=== PATIENT | male | born 1990 | race Native Hawaiian/Other Pacific Islander ===

== ENCOUNTER 2022-03-20 13:12 | Emergency (ER) | payer BC, SELFPAY ==
[2022-03-20 13:28] VITALS: BP 123/71; PULSE 64; RESP 18; TEMP 37.2; O2SAT 99; BMI 23.6
--- NOTE | 2022-03-20 13:36 | ED_ITS ---
HPI - Extremity Injury (Lower) General Time Seen by Provider: 13:36 Date Seen: 03/20/22 Chief Complaint: Extremity Pain/Injury, Lower Stated Complaint: Leg Injury Time Seen by Provider: 03/20/22 13:27 Source: patient and RN notes reviewed Mode of arrival: wheelchair Limitations: no limitations History of Present Illness HPI Narrative: Patient was playing volleyball prior to arrival when he felt sudden pop and pain in his Achilles area on his right lower extremity. He states it felt like somebody kicked him quite hard but that did not happen. He feels some mild ongoing tension or pain in the area. Trying to move his foot hurts in the Achilles area. No current numbness tingling. Nothing else hurts. He has no prior injury of his Achilles tendon that he is aware of. He did not attempt to walking, his friends carried him off and came in by wheelchair here. MD complaint: other (Right Achilles tendon injury) Onset (ago): minute(s) Related Data Home Medications Medication Instructions Recorded Confirmed No Known Home Medications 03/20/22 03/20/22 Allergies Allergy/AdvReac Type Severity Reaction Status Date / Time No Known Drug Allergies Allergy Verified 03/20/22 13:28 Review of Systems Narrative: As per HPI [facility] PFSH Social History (System 03/08/22 @ 14:09 by Estrellita Gonsales) Smoking Status: Never smoker Do you use any of these nicotine containing products: None How often do you have a drink containing alcohol: 2-4 times a month AUDIT-C Alcohol total score: 2 Non-prescribed substance use: denies use Exam Const: Vital Signs, click to edit/add: Vital Signs - 24 hr 03/20/22 13:28 Temperature 98.9 F Pulse Rate [Right Pulse Oximeter] 64 Respiratory Rate 18 Blood Pressure [Ri ght Upper Arm] 123/71 Pulse Oximetry 99 Oxygen Delivery Me thod Room Air Documenting provider has reviewed patient's vital signs: yes Common normals: no apparent distress, oriented x3, no limitations, healthy appearing and alert General appearance: cooperative, comfortable and well kempt Extremity: Other: He has no swelling of either lower extremity. The Achilles area on his right lower extremity does not have the defined tendon as he does on the left side. I t feels more soft and developing swelling. Initially I thought he might have a little preserved Jennings test on the right but when a truly get his legs over the side of the bed in a sitting position, I cannot elicit any response. He has a very definitive normal Jennings test on the left. There is no swelling in the foot, neurovascular is intact bilaterally. His right calf itself is nontender, seems to have some mild tenderness when I palpate over the right Achilles area, again, where there is loss of continuity of a defined Achilles tendon. Neuro: Common normals: oriented x3 Sensorium/orientation: alert Psych: Appearance: well kempt Course Consultations Consultation #1: Spoke with Joy Pedro of the orthopedic PAs. She will have the office contact him for follow-up appointment. She agrees with posterior splint application, nonweightbearing, use of crutches. As far as imaging, she states that they will order an MRI. They prefer an MRI if this is going to be surgical. Clinically a.m. confident enough that I think this is Achilles injury and will require MRI for follow-up, thus will not do an ultrasound for confirmation of diagnosis here is it is not necessary. Time: 13:50 Vital Signs Vital signs: Initial Vital Signs Temperature 98.9 F 03/20/22 13:28 Temperature Source Temporal Artery Scan 03/20/22 13:28 Pulse Rate 64 03/20/22 13:28 Respiratory Rate 18 03/20/22 13:28 Blood Pressure 123/71 03/20/22 13:28 Blood Pressure Mean 88 03/20/22 13:28 Blood Pressure Position Sitting 03/20/22 13:28 Pulse Oximetry 99 03/20/22 13:28 Oxygen Delivery Method 03/20/22 13:28 Vital Signs Temperature 98.9 F 03/20/22 13:28 Pulse Rate 64 03/20/22 13:28 Respiratory Rate 18 03/20/22 13:28 Blood Pressure 123/71 03/20/22 13:28 Pulse Oximetry 99 03/20/22 13:28 Oxygen Delivery Method 03/20/22 13:28 Temperature 98.9 F 03/20/22 13:28 Pulse Rate 64 03/20/22 13:28 Respiratory Rate 18 03/20/22 13:28 Blood Pressure 123/71 03/20/22 13:28 Pulse Oximetry 99 03/20/22 13:28 Oxygen Delivery Method 03/20/22 13:28 Critical Care Time Critical Care Time Critical Care Time: No Discharge Plan Discharge Clinical Impression: Achilles tendon rupture Qualifiers: Encounter type: initial encounter Laterality: right Qualified Code(s): S86.011A - Strain of right Achilles tendon, initial encounter Patient Disposition: Home, Self-Care Condition: Stable Instructions: Crutch Instructions (ED), Achilles Tendon Rupture (ED) Additional Instructions: Need to leave splint on, keep this dry. No weight-bearing on this extremity, use crutches. Can use Tylenol and ibuprofen per bottle directions for any discomfort. Ice, elevate this extremity to help diminish pain and swelling. If the orthopedic office has not contacted you by lunch time, call this number to get scheduled for an orthopedic follow-up appointment, . Activity Level: No Weight Bearing Activity Detail: No weight-bearing on right lower extremity until further advised by Orthopedics. Use crutches to achieve this goal. Leave splint on. Prescriptions: No Action No Known Home Medications Follow Up/Referrals: Provider,Not a Local [Primary Care Provider] - Stand Alone Forms: [facility] Info Instructions Procedures Orthopedic Splinting/Casting Injury #1: Side: right Lower Extremity Injury Location: lower leg Lower extremity immobilizer: posterior splint (Short-leg, Ortho Glass used) Applied by clinician: MD/DO Conclusion: patient tolerated procedure
== END 2022-03-20 14:23 | disposition home or self-care (01) ==
PROVIDERS: Emergency Provider Family Medicine
DX: S86.011A Strain of right Achilles tendon, initial encounter (principal); Y93.68 Activity, volleyball (beach) (court)
CPT/HCPCS: 29515; 99283